=== PATIENT | female | born 2000 | race Caucasian/White ===

== ENCOUNTER 2021-12-08 15:40 | Emergency (ER) | payer OTHER ==
[~2021-12-08] VITALS: Ht 162.6 cm; Wt 47.6 kg
--- NOTE | 2021-12-08 16:00 | NUR ---
BIB [facility] & [employer] FOR [facility]. PER PT, SHE IS NOT ACTUALLY SUICIDAL, BUT HELD A KNIFE TO SCRATCH HER L FOREARM TO TEST TO SEE IF HER BOYFRIEND LOVES HER. LAC ON LT FOREARM. AAOX4, BREATHING EVEN AND UNLABORED, PULSES 2+ BILATERALLY. ASSISTED TO ER BED 12. CHANGED TO GOWN. ONE-ON-ONE SITTER AT BEDSIDE. WILL CONTINUE TO MONITOR.
[2021-12-08 17:57] LABS: BASOPHILS # (AUTO) 0.1 K/uL (0.0-0.2); BASOPHILS % (AUTO) 0.4 % (0.0-2.0); EOSINOPHILS % (AUTO) 0.1 % (0.0-6.0); HEMATOCRIT 41 % (33-45); HEMOGLOBIN 13.4 g/dL (11.5-14.8); LYMPHOCYTES # (AUTO) 1.8 K/uL (0.8-4.8); LYMPHOCYTES % (AUTO) 11.7 % (20.0-44.0); MEAN CORPUSCULAR HGB CONC 32 g/dl (31.0-36.0); MEAN CORPUSCULAR VOLUME 89 fL (82-100); MONOCYTES # (AUTO) 0.9 K/uL (0.1-1.30); NEUTROPHILS # (AUTO) 12.7 K/uL (1.8-8.9); NEUTROPHILS % (AUTO) 81.8 % (43.0-81.0); RED BLOOD CELL COUNT(AUTO) 4.64 MIL/uL (4.0-5.2); WHITE BLOOD COUNT (AUTO) 15.5 K/uL (4.3-11.0)
[2021-12-08 18:18] LABS: ALANINE AMINOTRANSFERASE 8 U/L (12-78); ALBUMIN 4.2 g/dL (3.4-5.0); ALCOHOL, BLOOD < 3 mg/dL (0-0); ALKALINE PHOSPHATASE 40 U/L (46-116); ASPARTATE AMINOTRANSFERASE 17 U/L (15-37); BILIRUBIN,DIRECT 0.2 mg/dL (0.0-0.2); BILIRUBIN,TOTAL 0.6 mg/dL (0.2-1.0); CALCIUM, SERUM 9.1 mg/dL (8.5-10.1); CARBON DIOXIDE 20 mmol/L (21-32); CREATININE 0.7 mg/dL (0.6-1.3); GLUCOSE 78 mg/dL (74-106); TOTAL PROTEIN, SERUM 7.9 g/dL (6.4-8.2); UREA NITROGEN, BLOOD 17 mg/dL (7-18)
[2021-12-08 18:33] LABS: BILIRUBIN,URINE NEGATIVE (NEGATIVE); CHLORIDE 104 mmol/L (98-107); COLOR,URINE YELLOW (YELLOW); LEUKOCYTE ESTERASE ,URINE NEGATIVE (NEGATIVE); NITRITE, URINE NEGATIVE (NEGATIVE); POTASSIUM 3.1 mmol/L (3.5-5.1); PROTEIN,URINE NEGATIVE (NEGATIVE); SODIUM SERUM 135 mmol/L (136-145); UGLUCOSE NEGATIVE (NEGATIVE); UROBILINOGEN,URINE 0.2 EU/dL (0.2)
[2021-12-08 18:36] LABS: ACETAMINOPHEN < 2 ug/ml (10-30); PLATELET COUNT (AUTO) 299 K/uL (150-450)
[2021-12-08 18:46] LABS: BACTERIA,URINE RARE /HPF (None Seen); WBC,URINE 0-2 /HPF (0-3)
[2021-12-08] MEDS ORDERED: POTASSIUM CHLORIDE 20 MEQ TAB.PRT.SR PO ONE ×2 (19:30→19:34)
--- NOTE | 2021-12-08 19:44 | NUR ---
pt sitting in bed, aaox4, vs stable, will continue to monitor
--- NOTE | 2021-12-08 19:53 | NUR ---
CALL [facility] FOR EVAL. AFTER COVID AND PREG TESTS COME BACK.
--- NOTE | 2021-12-08 19:56 | NUR ---
CALLED LAB REGARDING URINE TEST
--- NOTE | 2021-12-08 22:17 | NUR ---
AMMA GAMBLING MONITOR PAGED.
--- NOTE | 2021-12-08 23:01 | NUR ---
PT SITTING IN BED, COMFORT MEASURES IN PLACE, VS STABLE. NO PRESENT COMPLAINTS
--- NOTE | 2021-12-08 23:53 | NUR ---
GABRIELLA AT BEDSIDE FOR EVAL.
--- NOTE | 2021-12-09 01:35 | NUR ---
PT OK TO DISCHARGE PER DR [place]. Patient discharged to home in stable condition. Written and verbal after care instructions given. Patient verbalizes understanding of instruction.Patient is awake and alert to self, day, and place. PT ambulatory with a steady gait. Picked up by aunt.
[2021-12-09 01:36] VITALS: BP 121/65
== END 2021-12-09 01:36 | disposition home or self-care (01) ==
LOC: ER 15:43
DX: F32.A Depression, unspecified (principal); R45.88 Nonsuicidal self-harm; R45.851 Suicidal ideations; S51.812A Laceration without foreign body of left forearm, initial encounter; X78.9XXA Intentional self-harm by unspecified sharp object, initial encounter; Y92.039 Unspecified place in apartment as the place of occurrence of the external cause; Z20.822 Contact with and (suspected) exposure to COVID-19; F41.9 Anxiety disorder, unspecified
CPT/HCPCS: 36415; 80048; 80076; 80143; 80307; 80320; 81001; 84703; 85025; 87426; 99285; C9803; G0480